=== PATIENT | female | born 1960 | race Caucasian/White ===

== ENCOUNTER 2022-07-15 09:54 | Outpatient (CLI) | payer OTHER | END 2022-07-15 09:55 | disposition home or self-care (01) | LOC: CSHULT 09:54 | PROVIDERS: ATTEND Student in an Organized Health Care Education/Training Program | DX: R07.89 Other chest pain (principal); K21.9 Gastro-esophageal reflux disease without esophagitis; R09.89 Other specified symptoms and signs involving the circulatory and respiratory systems; K62.5 Hemorrhage of anus and rectum; R19.7 Diarrhea, unspecified | CPT/HCPCS: 76705 ==